=== PATIENT | female | born 1945 | race Caucasian/White ===

== ENCOUNTER → 2017-09-10 11:38 | Outpatient (CLI) | payer MEDICARE, SELFPAY ==
--- NOTE | 2017-09-10 11:43 | RAD_ITS ---
STUDY: X-RAY - RIGHT KNEE REASON FOR EXAM: Female, 72 years old. Anterior knee pain following a fall. TECHNIQUE: 5 view(s) of the knee. COMPARISON: None. FINDINGS: Normal visualized distal femur. Normal visualized proximal tibia and fibula. Normal proximal tibiofibular articulation. Nondisplaced vertical fracture along the lateral aspect of the patella. Normal medial femorotibial compartment. Normal lateral femorotibial compartment. There is mild degenerative arthrosis of the patellofemoral articulation. Moderate size joint effusion. RAD/Knee 4 or More Views IMPRESSION: Nondisplaced fracture of the lateral portion of the patella. Moderate joint effusion. Electronically Signed: Medhat Casanova MD at 12:40 EDT Tel [phone], Service support ,
--- NOTE | 2017-09-10 11:43 | RAD_ITS ---
STUDY: X-RAY - LEFT FOOT CLINICAL: Female, 72 years old. Lateral pain following a recent fall TECHNIQUE: 3 view(s) of the foot. COMPARISON: None. FINDINGS: There is a plantar calcaneal spur. Normal visualized subtalar, talonavicular, calcaneocuboid, tarsal and tarsometatarsal articulations. Prior fusion at the first tarsometatarsal joint. Nondisplaced oblique fracture of the distal portion of the fifth metatarsal. There is degenerative arthrosis of the metatarsophalangeal joint of the hallux . Normal tibial and fibular sesamoid bones. Normal interphalangeal joint of the great toe. Normal phalanges of the great toe. Normal second through fifth metatarsophalangeal joints. Normal interphalangeal joints and phalanges of the lesser toes. Soft tissue swelling. RAD/Foot min 3 Views IMPRESSION: Nondisplaced oblique fracture of distal portion of the fifth metatarsal with overlying soft tissue swelling. Electronically Signed: Medhat Casanova MD at 13:20 EDT Tel [phone], Service support ,
--- NOTE | 2017-09-10 11:43 | RAD_ITS ---
STUDY: X-RAY - LEFT KNEE REASON FOR EXAM: Female, 72 years old. Pain following a fall. TECHNIQUE: 4 view(s) of the knee. COMPARISON: None. FINDINGS: Normal visualized distal femur. Normal visualized proximal tibia and fibula. Normal proximal tibiofibular articulation. Normal medial femorotibial compartment. Normal lateral femorotibial compartment. Normal patellofemoral articulation. The soft tissue structures are unremarkable. RAD/Knee 4 or More Views IMPRESSION: Normal x-ray examination of the knee. Electronically Signed: Medhat Casanova MD at 12:40 EDT Tel [phone], Service support ,
== END ==
PROVIDERS: Family Provider Internal Medicine; PCP Internal Medicine; Visit Provider Nurse Practitioner
DX: M25.561 Pain in right knee (principal); M79.672 Pain in left foot
CPT/HCPCS: 73564; 73630

== ENCOUNTER → 2018-12-03 | Outpatient (CLI) | payer MEDICARE, SELFPAY ==
--- NOTE | 2018-12-03 12:21 | BI_ITS ---
MAMMOGRAPHY - BILATERAL SCREENING REASON FOR EXAM: Female, 73 years old. Routine annual screening examination. PERTINENT HISTORY: Non-contributory. TECHNIQUE: Digital bilateral breast aristeo (3D mammographic acquisition) in the CC and MLO projections. 2-D mediolateral oblique (MLO) and craniocaudad (CC) views of both breasts were obtained. CAD: Full Field Digital Mammography with Computer Added Detection was performed. COMPARISON: Comparison is made with prior study dated August 07, 2016 and January 24, 2014. FINDINGS: Breast Composition: There are scattered areas of fibroglandular density. There are no dominant masses or suspicious calcifications. Stable appearance of the benign-appearing bilateral axillary lymph nodes. No other significant abnormalities are identified. There has been no significant change since the prior study. BI/SCREEN MAMM (CAD) W/ARISTEO BILAT IMPRESSION: Stable bilateral screening mammogram. Yearly follow-up mammogram recommended. (A) ASSESSMENT CATEGORY: BIRADS Category 2: Benign. A letter regarding these results will be sent to the patient by the facility within 30 days. Approximately 10% of breast cancers are not detected by mammography. A normal mammogram should not delay biopsy of a clinically suspicious abnormality. [id number] Electronically Signed: Medhat Casanova, at 13:57 EDT , Service support ,
== END | disposition home or self-care (01) ==
LOC: OPBI 12:19
PROVIDERS: Family Provider Internal Medicine; PCP Internal Medicine; Referring Provider Internal Medicine; Visit Provider Internal Medicine
DX: Z12.31 Encounter for screening mammogram for malignant neoplasm of breast (principal)
CPT/HCPCS: 77063; 77067

== ENCOUNTER → 2019-02-19 10:51 | Outpatient (CLI) | payer MEDICARE, SELFPAY ==
[2016-11-04 09:48] VITALS: BMI 25.9
--- NOTE | 2019-02-19 10:56 | RAD_ITS ---
STUDY: X-RAY - LEFT TIBIA AND FIBULA REASON FOR EXAM: Female, 73 years old. ALMOST FELL YESTERDAY- CAUGHT HERSELF BEFORE ACTUALLY FALLING, HAVING ANTERIOR AND LATERAL PAIN EVER SINCE TECHNIQUE: 2 view(s) of the tibia and fibula were obtained. COMPARISON: None. FINDINGS: Normal visualized tibia. Normal visualized fibula. There is no demonstrated acute fracture. The soft tissue structures are unremarkable. RAD/Tibia & Fibula 2 Views IMPRESSION: Normal x-ray examination of the tibia and fibula. Electronically Signed: Ngoc Hatfield MD at 21:40 EST , Service support ,
== END ==
PROVIDERS: Family Provider Internal Medicine; PCP Internal Medicine; Referring Provider Internal Medicine; Visit Provider Internal Medicine
DX: M79.605 Pain in left leg (principal)
CPT/HCPCS: 73590

== ENCOUNTER → 2020-09-26 10:17 | Outpatient (CLI) | payer MEDICARE, SELFPAY ==
--- NOTE | 2020-09-26 10:20 | BI_ITS ---
MAMMOGRAPHY - BILATERAL SCREENING REASON FOR EXAM: Female, 75 years old. Routine annual screening examination. PERTINENT HISTORY: Non-contributory. TECHNIQUE: Digital bilateral breast aristeo (3D mammographic acquisition) in the CC and MLO projections. 2-D mediolateral oblique (MLO) and craniocaudad (CC) views of both breasts were obtained. CAD: Full Field Digital Mammography with Computer Added Detection was performed. COMPARISON: Comparison is made with prior study 12/03/2018 and 08/07/2016. FINDINGS: Breast Composition: The breasts are heterogeneously dense, which may obscure small masses. There now is evidence of a 4.7 mm slightly irregular nodule in the anterior upper lateral aspect of the right breast. There is a 2.2 cm x 1.9 cm right axillary lymph node. No other significant abnormalities are identified. BI/SCRN MAMM (CAD)W/ARISTEO BILAT IMPRESSION: New 4.7 mm slightly irregular nodule in the upper lateral aspect of the right breast. Prominent right axillary lymph node. Correlation with ultrasound is recommended. ASSESSMENT CATEGORY: BIRADS Category 0: Incomplete. Need additional imaging evaluation. A letter regarding these results will be sent to the patient by the facility within 30 days. Approximately 10% of breast cancers are not detected by mammography. A normal mammogram should not delay biopsy of a clinically suspicious abnormality. [id number] Electronically Signed: Medhat Casanova MD at 11:44 EDT , Service support ,
--- NOTE | 2020-09-26 10:32 | BD_ITS ---
STUDY: DUAL ENERGY X-RAY ABSORPTIOMETRY / DXA REASON FOR EXAM: Female, 75 years old. Z780. Patient is postmenopausal. TECHNIQUE: Bone Mineral Density (BMD) measurements of lumbar spine and bilateral hips were obtained. COMPARISON: Comparison is made with prior study dated 08/07/2016. FINDINGS: Lumbar Spine (L1-L4): g/cm2 (0.820) / T-score (-2.1) / Z-score (0.3) Findings are suggestive of osteopenia with a high fracture risk. Left Femur Total: g/cm2 (0.750) / T-score (-1.6) / Z-score (0.2) Left Femoral Neck: g/cm2 (0.577) / T-score (-2.5) / Z-score (-0.4) Right Femur Total: g/cm2 (0.771) / T-score (-1.4) / Z-score (0.4) Right Femoral Neck: g/cm2 (0.603) / T-score (-2.2) / Z-score (my 0.1) The T-Scores on the most recent prior examination were: Lumbar Spine (L1-L4): There has been worsening of bone density since the previous examination. Left Femur Total: which represents a worsening of 4.2%. Right Femur Total: which represents a worsening of 3.6%. BD/Dexa Bone Density Study IMPRESSION: The patient is considered osteopenic as outlined below according to World Jose Organization (WHO) criteria with a high fracture risk. There has been worsening of bone density since the previous examination. Reference Information: The T-score is the number of standard deviations above or below the standard which is normal for young adults at their peak bone mineral density. The World Health Organization (WHO) interprets the T-scores as follows: Above -1 Normal bone density Between -1 and -2.5 Osteopenia Equal to / or below -2.5 Osteoporosis As a practical clinical guideline, osteopenia may be graded as follows: Mild -1 through -1.5 Moderate -1.6 through -2.0 Severe -2.1 through -2.4 The Z-score is the number of standard deviations above or below age-matched controls. A Z-score of less than -1.5 would be considered abnormal. References: 1. NIH Osteoporosis and Related Bone Diseases www osteo.org 2. International Society for Clinical Densitometry www iscd.org 3. National Osteoporosis Foundation www nof.org Electronically Signed: Medhat Casanova MD at 11:53 EDT , Service support ,
== END ==
PROVIDERS: PCP Internal Medicine; Referring Provider Internal Medicine; Visit Provider Internal Medicine
DX: Z78.0 Asymptomatic menopausal state (principal); Z12.31 Encounter for screening mammogram for malignant neoplasm of breast
CPT/HCPCS: 77063; 77067; 77080

== ENCOUNTER → 2020-10-02 14:03 | Outpatient (CLI) | payer MEDICARE, SELFPAY ==
--- NOTE | 2020-10-02 14:11 | US_ITS ---
STUDY: ULTRASOUND BREAST - RIGHT REASON FOR EXAM: Female, 75 years old. TECHNIQUE: Axial and longitudinal images of the RIGHT breast were performed with a high resolution ultrasound transducer. # OF IMAGES: 51 COMPARISON: Previous mammogram obtained on 09/26/2020 FINDINGS: RIGHT Breast: There is a lesion in the superior lateral quadrant of the right breast. The lesion measures 6 x 4 x 3 mm in size and is lobular and corresponds to the lesion noted on the mammogram. This is of uncertain etiology, but has a reniform appearance and a central echogenic hilum and probably represents an intramammary lymph node. This lesion is seen to 11 o''clock position 6 cm from the nipple. Posterior Enhancement: None Posterior Shadowing: None Margins: Lobular Echogenicity: Hypoechoic Compression effect on Shape: Does not change US/Breast Limited Unilateral IMPRESSION: Hypoechoic lesion is seen in the superior lateral aspect of the left breast at the 11 o''clock position of uncertain etiology. Because of ultrasound appearance of this nodule could represent a lymph node, however, a solid hypoechoic tumor cannot be completely excluded and close interval follow-up in 6 months with a follow-up mammogram versus an ultrasound directed right breast biopsy is recommended for further evaluation ASSESSMENT CATEGORY: BIRADS Category 4B: Moderate suspicion for malignancy. A letter regarding these results will be sent to the patient by the facility within 30 days. Electronically Signed: Jovon Nicole DO at 15:18 EDT Tel , Service support ,
== END ==
PROVIDERS: PCP Internal Medicine; Referring Provider Internal Medicine; Visit Provider Internal Medicine
DX: R92.8 Other abnormal and inconclusive findings on diagnostic imaging of breast (principal)
CPT/HCPCS: 76642

== ENCOUNTER → 2020-10-19 08:01 | Outpatient (CLI) | payer MEDICARE, SELFPAY ==
--- NOTE | 2020-10-18 | IMM_PTH ---
PATIENT: SHARIFA DALEY LOC: [facility] U#:[id number] AGE/SX: 79/F ROOM: RE10/19/[address]: Dr. Hal Hu MD : 1945 BED: DIS: SPEC #: [id number] RECD: 10/20/20 13:07 STATUS: MARGOTH RECarmelita #: [id number] EN: 10/18/20 00:[address]: Hal Hu DEPT: IMMUNOHISTOCHEMISTRY RECD BY: Ashley Gonzalez ENTERED: 10/20/20 13:12 SP TYPE: IMMUNO OTHR DR: Dr. Suzi Ledesma, Tissues: A - Right breast, NOS B - Axilla, NOS Procedures: CALPONIN-1 (add) CK5-6 (add) CK8 (add) OZUNA-2 (add) E-CAD (add) HER2 AARON (add) KI-67 (add) MAMM (add) P53 (add) VA (add) GATA3 (add) P40 (add) ER (initial) PHYSICIAN & [address] [address] SPECIMEN INFORMATION: Tissue Source: A ? Right breast tissue, B ? Right axilla tissue Clinical Info: Abnormal breast ultrasound Specimen Number: [id number] A & B CPT code: 04168 x2, 11918 x9, 43431 x5 METHODOLOGY: Deparaffinized sections of prefer/formalin-fixed tissue or PAP/DQ stained slides are incubated with monoclonal/polyclonal antibodies/oligonucleotide probes. Localization is made via biotin free immunoperoxidase method. Appropriate controls are performed and reacted as expected. Results on target cell population are indicated in the following table: RESULTS: ANTIBODY / CLONE RESULT Block A P53 (DO-7) negative Ki-67 (30-9) positive, low CK8 (42btlzA94) positive CK5-6 (D5 & 1684) negative Calponin-1 (BB699W) negative P40 (BC28) negative E-Cad (ECH-6) positive OZUNA-2 (SP21) positive MORPHOMETRIC ANALYSIS ER (clone 6F11) >95%, strong intensity VA (clone 16/1E2) >95%, strong intensity Her-2Neu (clone CB11) 0 Block B GATA3 (L50-823) positive Mammaglobin (31A5) positive, rare cells E-Cad (ECH-6) positive ER (6F11) positive VA (1E2) positive The prognostic test for HER2 is performed on formalin-fixed paraffin embedded tissue. A 3+ (positive) staining pattern is defined as intense, homogeneous, complete, circumferential membranous staining in >10% of contiguous tumor cells. A similar weak (2+) staining pattern is interpreted as equivocal. TRINA follow-up testing is recommended for all equivocal cases. Positivity/negativity for ER/VA is reported if > or < 1% of the tumor cells are immuno- reactive, respectively. The ASCO/CAP criteria is used for scoring. Reference: Journal of Clinical Oncology, 2013; 31:1222-3448 & 2010; 16:4441-2684. Duration of fixation: 27.5 Hrs; Sample Adequate: Yes. These assays have not been validated on decalcified tissues. Results should be interpreted with caution given the likelihood of false negativity on decalcified specimens. These tests were developed and their performance characteristics determined by [facility]. They may not have been cleared or approved by the U.S. Food and Drug Administration. The FDA has determined that such clearance or approval is not necessary. The above immunohistochemical/dualISH markers are ordered and reviewed by the Pathologist. INTERPRETATION: A. Right breast tissue, core biopsy: Invasive ductal carcinoma, nuclear grade 1. Positive for estrogen receptors (favorable prognostic indicator). Positive for progesterone receptors (favorable prognostic indicator). Negative for overexpression of CIX6iwh. B. Right axilla tissue, core biopsy: Invasive ductal carcinoma. SJ:roxanne 10/23/2020
--- NOTE | 2020-10-18 | BRBX_PTH ---
PATIENT: SHARIFA DALEY LOC: [facility] U#:[id number] AGE/SX: 79/F ROOM: RE10/19/[address]: Dr. Hal Hu MD : 1945 BED: DIS: SPEC #: [id number] RECD: 10/19/20 07:52 STATUS: MARGOTH HARPREET #: [id number] EN: 10/18/20 00:[address]: Hal Hu DEPT: SURGICAL PATHOLOGY RECD BY: Chidi Berman ENTERED: 10/19/20 08:25 SP TYPE: BREAST BX OTHR DR: Dr. Suzi Ledesma DO Tissues: A - Right breast, NOS B - Axilla, NOS Procedures: Surgery Specimen Level IV HEADER OPERATION: Right breast biopsy and right axilla biopsy PRE-OP DIAGNOSIS: Abnormal breast ultrasound TISSUE SUBMITTED: A ? Right breast tissue, B ? Right axilla tissue FIXATION TIME: 27.5 hours MICROSCOPIC DIAGNOSIS A. Right breast, core biopsy: Invasive ductal carcinoma with the following characteristics: Maximal length ? 5 millimeters Nuclear grade ? 03/05 See comment. B. Right axilla, core biopsy: Invasive ductal carcinoma with the following characteristics: Maximal length ? 5 millimeters Nuclear grade ? 03/05 See comment. AM:roxanne 10/20/2020 COMMENT A. ER/MO/Nom4pjz studies are being performed on sections of tumor and the results from this study will be reported separately ([id number]). B. Immunohistochemistry ([id number]) supports the above diagnosis. Metastasis to lymph node cannot be ruled out. Clinical correlation is suggested. Case has been reviewed in consultation with Dr. Platt who concurs with the above diagnosis. IDC:SJ MICROSCOPIC DESCRIPTION Slides are reviewed. GROSS DESCRIPTION A - Received in fixative is one container labeled with the patient name and designated right breast. The specimen consists of multiple elongated fragments of rowell-yellow fibroadipose tissue that in aggregate measure 2.5 x 0.3 x 0.1 cm. The entire specimen is submitted in one cassette. B - Received in fixative is one container labeled with the patient's name and designated right axilla. The specimen consists of multiple irregular fragments of rowell soft tissue that in aggregate measure 0.5 x 0.2 x 0.1 cm. The specimen is totally submitted in one cassette. / SJ:rg 10/19/20 TC:0 CPT: 72897 x2 ADDENDUM ADDENDUM ADDENDUM ADDENDUM ADDENDUM ADDENDUM ADDENDUM ADDENDUM 06/19/2021 15:37 ADDENDUM 06/19/2021 15:37 ADDENDUM 06/19/2021 15:37 ADDENDUM 06/19/2021 15:37 ADDENDUM 06/19/2021 15:37 An order for Oncotype testing was received from Dr. Antony. This necessitated case review, block and slide selection by pathologist at [facility]. Breast Cancer Recurrence Score = 7 Results of the complete Oncotype testing ([facility]iz[facility] report) are viewable in EMR under: Reports - Pathology - Lab Pathology Report, Scanned.
== END ==
PROVIDERS: PCP Internal Medicine; Visit Provider Surgery
DX: R92.8 Other abnormal and inconclusive findings on diagnostic imaging of breast (principal)
CPT/HCPCS: 88305

== ENCOUNTER → 2020-10-19 09:38 | Outpatient (CLI) | payer MEDICARE, SELFPAY ==
--- NOTE | 2020-10-19 09:40 | BI_ITS ---
MAMMOGRAPHY - UNILATERAL DIAGNOSTIC: RIGHT BREAST REASON FOR EXAM: Female, 75 years old. Clip placement following biopsy. PERTINENT HISTORY: Right breast biopsy. TECHNIQUE: Digital unilateral breast denisse (3D mammographic acquisition) in the CC and MLO projections. 2-D mediolateral oblique (MLO) and craniocaudad (CC) views of both breasts were obtained. CAD: Full Field Digital Mammography with Computer Added Detection was performed. COMPARISON: Comparison is made with prior study dated 09/26/2020. FINDINGS: Indication clip marker is seen in the upper lateral aspect of the right breast at the site of the suspicious nodular density. A tissue clip marker is also seen within the enlarged right axillary lymph node. BI/DIAG MAMM W/CAD, UNILAT IMPRESSION: Tissue clip marker is seen within the nodular density in the upper lateral aspect of the right breast. Tissue clip marker is also seen in the enlarged right axillary lymph node. ASSESSMENT CATEGORY: BIRADS Category 2: Benign. A letter regarding these results will be sent to the patient by the facility within 30 days. Approximately 10% of breast cancers are not detected by mammography. A normal mammogram should not delay biopsy of a clinically suspicious abnormality. Electronically Signed: Medhat Casanova MD at 10:08 EDT , Service support ,
== END ==
PROVIDERS: PCP Internal Medicine; Visit Provider Surgery
DX: R92.8 Other abnormal and inconclusive findings on diagnostic imaging of breast (principal)
CPT/HCPCS: 77065; 88305; 88341; 88342

== ENCOUNTER → 2020-11-02 08:01 | Outpatient (CLI) | payer MEDICARE, SELFPAY ==
--- NOTE | 2020-11-02 08:02 | MRI_ITS ---
STUDY: BILATERAL BREAST MR WITHOUT AND WITH CONTRAST REASON FOR EXAM: Female, 75 years old. History of 2 biopsies of the right breast. History of breast cancer. TECHNIQUE: Multi-sequence multi-echo imaging of both breasts was performed with a dedicated breast coil. T1-weighted and T2-weighted images were performed before the administration of contrast. T1-weighted images were also performed after the administration of IV Yes without complications. COMPARISON: Right diagnostic mammogram dated 10/19/2020 and right breast ultrasound dated 10/02/2020. FINDINGS: RIGHT BREAST: The breast tissue is heterogeneously dense with minimal background enhancement. 7 mm in diameter irregular enhancing lesion corresponding to the ultrasound findings with a tissue clip marker within it. The lesion is moderately suspicious for breast cancer. At the time of this dictation, I did not have access to the histologic results. LEFT BREAST: The breast tissue is heterogeneously dense with minimal background enhancement. There are no abnormal enhancing masses or areas of non-mass enhancement in the left breast. Fatty replaced lymph nodes in both axillae. There is no abnormality in the visualized regions of the chest or liver. . MRI/Breast Bilateral W/O and W IMPRESSION: Enhancing lesion at approximately the 11 o''clock position of the right breast corresponding to the ultrasonographic findings, moderately suspicious for breast cancer. See discussion above. CATEGORY: BIRADS Category 4B: Moderate suspicion for malignancy. A letter regarding these results will be sent to the patient by the facility within 30 days. Electronically Signed: Luis Corado MD at 9:32 EDT , Service support ,
[2020-11-02 08:51] LABS: CREATININE FINGERSTICK 0.7 mg/dL (0.55-1.02); EGFR FINGERSTICK > 60.0000 mL/min (>60)
== END ==
PROVIDERS: PCP Internal Medicine; Referring Provider Surgery; Visit Provider Surgery
DX: C77.3 Secondary and unspecified malignant neoplasm of axilla and upper limb lymph nodes (principal); C50.911 Malignant neoplasm of unspecified site of right female breast
CPT/HCPCS: 77049; A9575; C8908

== ENCOUNTER 2020-11-30 09:24 | Day surgery (SDC) | payer MEDICARE, SELFPAY ==
--- NOTE | 2020-11-28 09:29 | EKG12_ITS ---
Test Reason : PREOP Blood Pressure : / mmHG Vent. Rate : 082 BPM Atrial Rate : 082 BPM P-R Int : 200 ms QRS Dur : 106 ms QT Int : 352 ms P-R-T Axes : 025 -45 020 degrees QTc Int : 411 ms Normal sinus rhythm Left axis deviation Poor R wave progression Septal CO, age undetermined, cannot be excluded Abnormal ECG Confirmed by DEBORAH NEUMANN, ERIK ([id number]), editor map DEDE LEE ([id number]) on 11/29/2020 1:04:31 PM Referred By: Hal Hu Confirmed By:ERIK CABRERA MD
--- NOTE | 2020-11-28 10:00 | RAD_ITS ---
STUDY: X-RAY CHEST REASON FOR EXAM: Female, 75 years old. PRE-OP -- BREAST CA TECHNIQUE: PA and lateral views of the chest. COMPARISON: None. FINDINGS: Hyperinflation. Scattered calcified granulomas. There is no demonstrated pleural abnormality. Normal size heart. Normal mediastinum and darshan. Normal visualized pulmonary arteries. There is atherosclerotic calcification of the aortic arch with tortuosity. There is demineralization of the osseous structures. Increased kyphosis Normal visualized ribs, clavicles, and shoulders. There is no demonstrated abnormality of the visualized soft tissue structures of the upper abdomen. RAD/Chest PA and Lateral IMPRESSION: Hyperinflation. The lungs are clear. Electronically Signed: Medhat Casanova MD at 14:01 EDT , Service support ,
[2020-11-28 10:59] LABS: Hematocrit 43.1 % (37-47); Hemoglobin 14.5 g/dL (12.0-15.0); Mean Corp Hgb Conc 33.6 g/dL (32-36); Mean Corpuscular Hgb 33.2 pg (27.0-32.0); Mean Corpuscular Volume 98.6 fL (81-99); Mean Platelet Vol. 9.3 fl (6.2-12.0); Platelet Count 193 K/mm3 (150-450); RBC Distribution Width CV 13.1 % (11.6-14.6); RBC Distribution Width SD 47.8 fl (35.1-43.9); Red Blood Count 4.37 M/mm3 (4.2-5.4); White Blood Count 7.1 K/mm3 (4.4-11.0)
[2020-11-28 11:37] LABS: AST(SGOT) 24 U/L (15-37); Alanine Aminotransfer ALT/SGPT 37 U/L (13-56); Albumin, Serum 3.9 g/dL (3.2-5.0); Alkaline Phosphatase 93 U/L (45-117); Anion Gap 8 (5-15); BUN 12 mg/dL (7-18); BUN/Creat Ratio 18.2 RATIO (10-20); Calcium,Total 9.3 mg/dL (8.5-10.1); Chloride 103 mmol/L (98-107); Creatinine, Serum 0.66 mg/dL (0.55-1.02); EST Glomerular Filtration Rate 93 mL/min (>60); Est Glom Filt Rate - Afr Amer 112 mL/min (>60); Globulin 3.9 g/dL (2.2-4.2); Glucose 101 mg/dL (74-106); Protein, Total 7.8 g/dL (6.4-8.2); Sodium Level 139 mmol/L (136-145)
--- NOTE | 2020-11-30 | BRBX_PTH ---
PATIENT: SHARIFA DALEY [place] [facility] [place][id number] AGE/SX: 75/F ROOM: RE11/30/[address]: Dr. Hal uH MD : 1945 BED: DIS: 11/30/2020 SPEC #: [id number] RECD: 11/30/20 11:46 STATUS: MARGOTH RECarmelita #: [id number] EN: 11/30/20 00:[address]: Hal Hu DEPT: SURGICAL PATHOLOGY RECD BY: Ashley Gonzalez ENTERED: 11/30/20 12:22 SP TYPE: BREAST BX OTHR DR: Dr. Suzi Ledesma, DO Tissues: A - Right breast, NOS B - Axillary tail of breast Procedures: Surgery Specimen Level V HEADER OPERATION: Stereotactic wire localization breast and axilla, ultrasound PRE-OP DIAGNOSIS: Abnormal mammogram of right breast, axillary adenopathy TISSUE SUBMITTED: A - Right breast lumpectomy, wire out - anterior, long suture - lateral, short suture - superior, B - Right axillary dissection MICROSCOPIC DIAGNOSIS A. Right breast, lumpectomy: Invasive ductal carcinoma. See synoptic report below. B. Right axillary lymph nodes, regional lymphadenectomy: Two out of ten lymph nodes with metastatic breast carcinoma. See comment. AM:roxanne 12/04/2020 COMMENT INVASIVE BREAST CANCER SUMMARY: Procedure: Excision with wire guidance Specimen: Type: Partial breast Size: 6 x 3 x 2.3 cm Laterality: Right breast Invasive Tumor: Site: Right breast Size: 8 x 5 x 5 mm Focality: Single focus of invasive carcinoma Histologic type: Invasive ductal carcinoma. Histologic grade (Evon grade): Glandular/tubular differentiation score: 3 Nuclear pleomorphism score: 2 Mitotic count score: 1 Overall grade: 2 (score of 6) Ductal Carcinoma In Situ: Present Estimated quantification: 20% Number of blocks: 2 of 12 blocks Architectural pattern: Cribriform and focal solid Nuclear grade: 2 Necrosis: Not present Lobular Carcinoma In Situ: Not present Tumor extension: Skin: No skin present Nipple: No nipple present Skeletal muscle: No muscle present. Margins: Distance of invasive carcinoma is 3 mm from anterior margin. Distance of in situ carcinoma from closest margin is 2.5 mm from anterior margin. Lymph Nodes: Number of sentinel lymph nodes examined: 0 Total number of lymph nodes examined: 10 Total number of lymph nodes involved by carcinoma: 2 of 10. Size of largest metastatic deposit: 2.5 cm. Extranodal extension: 7 mm See specimen ?A? Treatment Effect: Unknown Lymphvascular invasion: Not identified Additional Pathologic Findings: Fibrocystic change, usual intraductal hyperplasia with focal atypical intraductal hyperplasia and adenosis. Ancillary Studies: Previously performed ([id number]) ER: positive (>95%, strong intensity) LA: positive (>95%, strong intensity) Adt7nrc: negative (0) PATHOLOGIC STAGE: pT1b pN1a Mx The above summary is in compliance with [employer] [place] [employer] (CAP) Cancer Protocols Checklist and [place] Joint Committee on Cancer (AJCC), Staging Manual, 8th Ed. A. Immunohistochemistry ([id number]) supports the above diagnosis. B. The metastatic foci of carcinoma range in size from 0.3 to 2.5 cm. There is focal area of extranodal extension measuring approximately 7 mm in greatest dimension adjacent to largest metastatic focus. Reference is made to the patient's previous right core breast biopsy and right axillary mass core biopsy from 10/20/20 ([id number]) in which invasive ductal carcinoma with metastasis was identified. Case has been reviewed in consultation with Dr. Platt who concurs with the above diagnosis. IDC:[email or web address] MICROSCOPIC DESCRIPTION Slides are reviewed. GROSS DESCRIPTION A - Received fresh for OR consultation labeled with the patient's name is a specimen designated right breast lumpectomy. The specimen consists of a wire-guided lumpectomy specimen measuring 6 x 3 x 2.3 cm and weighing 17.8 gm. No skin fragment is attached. The specimen has been oriented and is differentially inked as follows: anterior - yellow, posterior - black, superior - blue, inferior - green, medial - red and lateral - orange. Serial sections reveal a 5 mm nodule located 0.5 cm from its closest (anterior) margin of excision. This information is conveyed to the surgeon intraoperatively. Topographic Computator sections are submitted in ten cassettes as follows: 1 & 2 - perpendicular inked margins, 3 - lesion with adjacent perpendicular anterior margin, 4-10 - event sales representative sections of uninvolved breast parenchyma adjacent to and away from the lesion with #10 closest to tumor. B - Received in fixative is one container labeled with the patient's name and designated right axillary dissection. The specimen consists of an irregular fragment of rowell-yellow fibrofatty tissue measuring 14 x 7 x 1 cm. Two sections reveal multiple nodules ranging in size from 0.5 to 2.5 cm. The nodules are submitted in their entirety in seven cassettes as follows: 1 & 2 - multiple nodules, 3-5 - one nodule, serially sectioned, 6 & 7 - one nodule, serially sectioned. / AM:roxanne 12/01/20 TC:0 CPT: 32696 x2, 47155
--- NOTE | 2020-11-30 | IMM_PTH ---
PATIENT: SHARIFA DALEY [place] [facility] [place][id number] AGE/SX: 75/F ROOM: RE11/30/[address]: Dr. Hal Hu MD : 1945 BED: DIS: 11/30/2020 SPEC #: [id number] RECD: 12/05/20 12:27 STATUS: MARGOTH REQ #: [id number] EN: 11/30/20 00:[address]: Hal Hu DEPT: IMMUNOHISTOCHEMISTRY RECD BY: Ashley Gonzalez ENTERED: 12/05/20 12:28 SP TYPE: IMMUNO OTHR DR: Dr. Suzi Ledesma, DO Tissues: B - Axillary lymph node, NOS Procedures: MAMM (add) Pankeratin (initial) GATA3 (add) PHYSICIAN & INSTITUTION [place] [id number] SPECIMEN INFORMATION: Tissue Source: B ? Right axillary dissection Clinical Info: Abnormal mammogram, axillary adenopathy Specimen Number: [id number] B CPT code: 70866, 79495 x2 METHODOLOGY: Deparaffinized sections of prefer/formalin-fixed tissue or PAP/DQ stained slides are incubated with monoclonal/polyclonal antibodies/oligonucleotide probes. Localization is made via biotin free immunoperoxidase method. Appropriate controls are performed and reacted as expected. Results on target cell population are indicated in the following table: RESULTS: ANTIBODY / CLONE RESULT Block B GATA3 ([id number]) positive AE1-3 (AE1/AE3/PCK26) positive Mammaglobin (31A5) positive, focal These tests were developed and their performance characteristics determined by [facility]. They may not have been cleared or approved by the [place]. Food and Drug Administration. The FDA has determined that such clearance or approval is not necessary. The above immunohistochemical/dualISH markers are ordered and reviewed by the Pathologist. INTERPRETATION: B. Right axillary lymph node, regional lymphadenectomy: Consistent with metastatic breast carcinoma. AM:roxanne 12/06/2020
--- NOTE | 2020-11-30 09:42 | BI_ITS ---
SURGICAL BREAST SPECIMEN RADIOGRAPH CLINICAL: Document presence of tissue clip marker in biopsy specimen. FINDINGS: Specimen shows presence of tissue clip marker. Electronically Signed: Medhat Casanova MD at 12:27 EDT , Service support , BI/Breast Biopsy Specimen
[2020-11-30 09:47] VITALS: BP 148/90; PULSE 87; RESP 18; TEMP 36.1; O2SAT 99; BMI 24.4
[2020-11-30] MEDS: Lactated Ringers 1,000 ML 100 ML IV ×2 (10:07→13:01)
--- NOTE | 2020-11-30 10:45 | PCM.HP.BLA ---
History and Physical Date of Admission: 11/30/20 Visit Reasons: Discuss surgery Chief Complaint: discuss surgery Poll Watcher Required: No Is patient in pain?: No Allergies No Known Allergies Allergy (Verified 11/16/20 07:38) Medications conjugated estrogens 0.625 mg/gram vaginal cream 0.625 mg VAGINAL DAILY 10/18/20 [History Confirmed 11/16/20] metronidazole 0.75 % topical cream 1 applic TOPICAL BID 10/18/20 [History Confirmed 11/16/20] multivitamin 1 tab PO DAILY 10/18/20 [History Confirmed 11/16/20] salmon oil-omega-3 fatty acids 1,000 mg-200 mg capsule cap PO 10/18/20 [History Confirmed 11/16/20] ascorbic acid (vitamin C) 1,000 mg tablet 1 g PO DAILY tab 11/08/20 [History Confirmed 11/16/20] cholecalciferol (vitamin D3) 50 mcg (2,000 unit) tablet 50 mcg PO BID tab 11/08/20 [History Confirmed 11/16/20] tamsulosin 0.4 mg capsule 0.4 mg PO QHS #30 cap 11/16/20 [Rx Confirmed 11/16/20] Is last menstrual period known: No Post menopausal: Yes Patient : No PFSH Medical History Allergies Breast cancer of upper-outer quadrant of right female breast Hyperthyroidism Left anterior fascicular block Osteopenia Regional lymph node metastasis present Tinea cruris Surgical History History of breast biopsy (~10/2020) S/P appendectomy S/P cataract extraction S/P foot surgery S/P tonsillectomy and adenoidectomy Family History Mother Heart disease Father Heart disease Social History Smoking Status: Never smoker second hand exposure: No alcohol intake: current Alcohol type: wine substance use type: does not use what type of physical activity do you participate in: yoga frequency: 1-2 times per week eliud/oriental orthodox: Cheondoism seatbelt use: always do you feel safe at home: Yes HPI HPI HPI: SHARIFA HIRST, is a 75 F who presents to the office today for ongoing surgical consultation regarding upper outer quadrant right breast cancer with metastasis to one known lymph node. Since her most recent surgery visit she has had a breast MRI and a consultation with Dr. Riley Antony. The breast MRI simply demonstrates the known cancer in the upper quadrant of the right breast. Actually there is no comment about the right axillary lymph node. 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 November 02, [address] Luis Corado MD on 11/10/20 at 1020 ADDENDUM IMPRESSION: Enhancing lesion at approximately the 11 o''clock position of the right breast corresponding to the ultrasonographic findings, compatible with the patient''s diagnosis of malignancy. CATEGORY: BIRADS Category 6: Known Biopsy-Proven Malignancy - Appropriate Action Should Be Taken. A letter regarding these results will be sent to the patient by the facility within 30 days. Electronically Signed: Luis Corado MD at 10:20 EDT , Service support , 11/10/20 1020Date cc: Dr. Suzi Ledesma DO; Dr. Hal Hu MD ~*Signed ADDENDUM by Dr. Luis Corado MD on 11/10/20 at 1020 MRI/Breast Bilateral W/O and W 11/10/20 1027Date cc: Dr. Suzi Ledesma DO; Dr. Hal Hu MD ~*Signed STUDY: BILATERAL BREAST MR WITHOUT AND WITH CONTRAST REASON FOR EXAM: Female, 75 years old. History of 2 biopsies of the right breast. History of breast cancer. TECHNIQUE: Multi-sequence multi-echo imaging of both breasts was performed with a dedicated breast coil. T1-weighted and T2-weighted images were performed before the administration of contrast. T1-weighted images were also performed after the administration of IV Yes without complications. COMPARISON: Right diagnostic mammogram dated 10/19/2020 and right breast ultrasound dated 10/02/2020. FINDINGS: RIGHT BREAST: The breast tissue is heterogeneously dense with minimal background enhancement. 7 mm in diameter irregular enhancing lesion corresponding to the ultrasound findings with a tissue clip marker within it. The lesion is moderately suspicious for breast cancer. At the time of this dictation, I did not have access to the histologic results. LEFT BREAST: The breast tissue is heterogeneously dense with minimal background enhancement. There are no abnormal enhancing masses or areas of non-mass enhancement in the left breast. Fatty replaced lymph nodes in both axillae. There is no abnormality in the visualized regions of the chest or liver. . MRI/Breast Bilateral W/O and W IMPRESSION: Enhancing lesion at approximately the 11 o''clock position of the right breast corresponding to the ultrasonographic findings, moderately suspicious for breast cancer. See discussion above. CATEGORY: BIRADS Category 4B: Moderate suspicion for malignancy. A letter regarding these results will be sent to the patient by the facility within 30 days. Electronically Signed: Luis Corado MD at 9:32 EDT , Service support , My previous notes reflect the following Intake Visit Reasons: discuss surgery Chief Complaint: right breast mass Allergies No Known Allergies Allergy (Verified 10/18/20 15:34) Medications conjugated estrogens 0.625 mg/gram vaginal cream 0.625 mg VAGINAL DAILY 10/18/20 [History Confirmed 10/24/20] metronidazole 0.75 % topical cream 1 applic TOPICAL BID 10/18/20 [History Confirmed 10/24/20] multivitamin 1 tab PO DAILY 10/18/20 [History Confirmed 10/24/20] salmon oil-omega-3 fatty acids 1,000 mg-200 mg capsule cap PO 10/18/20 [History Confirmed 10/24/20] [facility] Medical History Allergies Hyperthyroidism Left anterior fascicular block Tinea cruris Surgical History (Updated 10/24/20 @ 12:34 by Helen Law) History of breast biopsy (~10/2020) S/P appendectomy S/P cataract extraction S/P foot surgery S/P tonsillectomy and adenoidectomy Family History Mother Heart disease Father Heart disease Social History Smoking Status: Never smoker alcohol intake: current alcohol intake frequency: holidays/special occasions only HPI HPI HPI: SHARIFA DALEY, is a 75 F who presents to the office today for surgical follow-up of an ultrasound-guided core biopsy upper outer quadrant right breast mass and separate enlarged right axillary lymph node that I assisted her with on October 18, 2020. MICROSCOPIC DIAGNOSIS A. Right breast, core biopsy:Invasive ductal carcinoma with the following characteristics:Maximal length ?5 millimeters Nuclear grade ?1/3 B. Right axilla, core biopsy:Invasive ductal carcinoma with the following characteristics:Maximal length ?5 millimeters Nuclear grade ?1/3 Estrogen receptor greater than 95% strong intensity; progesterone receptor greater than 95% strong intensity; HER-2/joyce 0 My notes from October 18, 2020 follow: Intake Visit Reasons: R BRST BIRAD IV, U/S & MAMMO [facility] Chief Complaint: right breast mass Poll Watcher Required: No Is patient in pain?: No Allergies No Known Allergies Allergy (Verified 10/18/20 15:34) Medications conjugated estrogens 0.625 mg/gram vaginal cream 0.625 mg VAGINAL DAILY 10/18/20 [History Confirmed 10/18/20] metronidazole 0.75 % topical cream 1 applic TOPICAL BID 10/18/20 [History Confirmed 10/18/20] multivitamin 1 tab PO DAILY 10/18/20 [History Confirmed 10/18/20] salmon oil-omega-3 fatty acids 1,000 mg-200 mg capsule cap PO 10/18/20 [History Confirmed 10/18/20] [facility] Medical History (Updated 10/18/20 @ 16:[address] Hal Hu MD) Allergies Hyperthyroidism Left anterior fascicular block Tinea cruris Surgical History (Updated 10/18/20 @ 15:32 by Yadi Rodrigues) S/P appendectomy S/P cataract extraction S/P foot surgery S/P tonsillectomy and adenoidectomy Family History (Updated 10/18/20 @ 15:33 by Yadi Rodrigues) Mother Heart disease Father Heart disease Social History (Updated 10/18/20 @ 15:33 by Yadi Rodrigues) Smoking Status: Never smoker alcohol intake: current alcohol intake frequency: holidays/special occasions only HPI HPI HPI: SHARIFA DALEY, is a 75 F who presents to the office today for surgical consultation regarding an abnormal upper outer right breast mammogram and a prominent right axillary lymph node. The patient had bilateral mammograms and right breast ultrasound. In the right breast ultrasound report of October 02, 2020 there appears to be a typographical error in the impression stating that there is a defect in the left breast. A correct interpretation should be that it is the right breast that is of concern. 75-year-old female. G3, . Menarche age 13. First child was born when she was 20. She did not breast-feed. No history of previous breast biopsy. For the past 2 to 3 months she has been on vaginal Premarin. I have asked her to hold this. Family history is negative for breast cancer. She has not been able to detect any focal breast abnormality. There is been no nipple discharge or bleeding. September 26, 2020 MAMMOGRAPHY - BILATERAL SCREENING REASON FOR EXAM: Female, 75 years old. Routine annual screening examination. PERTINENT HISTORY: Non-contributory. TECHNIQUE: Digital bilateral breast aristeo (3D mammographic acquisition) in the CC and MLO projections. 2-D mediolateral oblique (MLO) and craniocaudad (CC) views of both breasts were obtained. CAD: Full Field Digital Mammography with Computer Added Detection was performed. COMPARISON: Comparison is made with prior study 12/03/2018 and 08/07/2016. FINDINGS: Breast Composition: The breasts are heterogeneously dense, which may obscure small masses. There now is evidence of a 4.7 mm slightly irregular nodule in the anterior upper lateral aspect of the right breast. There is a 2.2 cm x 1.9 cm right axillary lymph node. No other significant abnormalities are identified. BI/SCRN MAMM (CAD)W/ARISTEO BILAT IMPRESSION: New 4.7 mm slightly irregular nodule in the upper lateral aspect of the right breast. Prominent right axillary lymph node. Correlation with ultrasound is recommended. ASSESSMENT CATEGORY: BIRADS Category 0: Incomplete. Need additional imaging evaluation. A letter regarding these results will be sent to the patient by the facility within 30 days. Approximately 10% of breast cancers are not detected by mammography. A normal mammogram should not delay biopsy of a clinically suspicious abnormality. [id number] Electronically Signed: Medhat Casanova MD at 11:44 EDT , Service support , October 02, 2020 STUDY: ULTRASOUND BREAST - RIGHT REASON FOR EXAM: Female, 75 years old. TECHNIQUE: Axial and longitudinal images of the RIGHT breast were performed with a high resolution ultrasound transducer. # OF IMAGES: 51 COMPARISON: Previous mammogram obtained on 09/26/2020 FINDINGS: RIGHT Breast: There is a lesion in the superior lateral quadrant of the right breast. The lesion measures 6 x 4 x 3 mm in size and is lobular and corresponds to the lesion noted on the mammogram. This is of uncertain etiology, but has a reniform appearance and a central echogenic hilum and probably represents an intramammary lymph node. This lesion is seen to 11 o''clock position 6 cm from the nipple. Posterior Enhancement: None Posterior Shadowing: None Margins: Lobular Echogenicity: Hypoechoic Compression effect on Shape: Does not change US/Breast Limited Unilateral IMPRESSION: Hypoechoic lesion is seen in the superior lateral aspect of the left breast at the 11 o''clock position of uncertain etiology. Because of ultrasound appearance of this nodule could represent a lymph node, however, a solid hypoechoic tumor cannot be completely excluded and close interval follow-up in 6 months with a follow-up mammogram versus an ultrasound directed right breast biopsy is recommended for further evaluation ASSESSMENT CATEGORY: BIRADS Category 4B: Moderate suspicion for malignancy. A letter regarding these results will be sent to the patient by the facility within 30 days. Electronically Signed: Jovon Nicole DO at 15:18 EDT Tel , Service support , ROS General General: No weight change, appetite, fatigue, colon cancer, breast cancer or weakness HEENT HEENT: No difficulty swallowing, eye injury, eye surgery, swollen glands or hoarseness Endo Endocrine: No thyroid disease, diabetes mellitus, thyroid cancer, Hair loss, heat intolerance or cold intolerance Skin Skin: No rash or changing moles Breast Breast: No left breast lump, right breast lump, nipple discharge, breast pain, abnormal mammogram, abnormal US or breast enlargement Musc Musculoskeletal: No back problems, arthritis, rheumatoid arthritis, gout or joint pain Cardio Cardiovascular: No murmur, pacemaker, heart disease, atrial fibrillation, high blood pressure, heart attack, heart stent, palpitations, shortness of breat with exertion or chest pain Psych Psychiatric: No depression, anxiety or hearing voices Resp Respiratory: No shortness of breath, No sleep apnea, No cough, No COPD, No asthma, No emphysema and No wheezing Gastro Gastrointestinal: No abdominal pain, No nausea or vomiting, No diarrhea, No constipation, No blood in stool, No acid reflux, No hemorrhoids, No ulcers, No gallbladder problem and No black,tarry stools Ward Hematologic: No blood thinners, No blood disorders, No bleeding, No anemia and No blood clots Neuro Neurologic: No system reviewed and no additional complaints, except as documented, No as per HPI, No abnormal gait, No abnormal hearing, No abnormal movements, No abnormal speech, No behavioral changes, No burning sensations, No confusion, No convulsions, No disequilibrium, No dizziness, No localized weakness, No frequent falls, No headache(s), No lack of coordination, No loss of vision, No memory loss, No numbness, No other visual disturbances, No radicular pain, No restless legs, No sensory deficit, No syncope, No tingling, No tremor(s), No weakness and No other Exam Const General: cooperative, healthy appearing, comfortable and no acute distress [facility] Head: normal to inspection Eyes General: appearance normal, both eyes and all related structures Neck Neck: normal visual inspection Chest Other: Right breast: No focal mass. No nipple discharge. Distinct solitary enlarged right axillary lymph node, slightly mobile, no matting, no conglomerate Left breast no focal mass. No nipple discharge. No axillary clavicular adenopathy Resp Effort & Inspection: normal respiratory effort Auscultation: clear to auscultation bilaterally Cardio Rate: regular rate Rhythm: regular rhythm GI Palpation: soft Auscultation: normal bowel sounds Neuro General: patient alert, patient awake, patient oriented x3 and oriented Extrem General: no calf tenderness Psych Affect: normal affect Office Procedures Biopsy Provider Documentation Ultrasound-guided needle core biopsy upper outer quadrant right breast lesion 11 o'clock position +6 cm Ultrasound-guided needle core biopsy right axillary enlarged lymph node Timeout and informed consent was obtained. 75-year-old female was taken the procedure room right shoulder roll was placed. The upper quadrant right breast and right axilla was prepped with Betadine. Ultrasound was performed demonstrating the upper outer quadrant right breast 11:00 for 6 cm lesion. Under ultrasound guidance 1% lidocaine mixed 50-50 with 0.5% Marcaine was instilled as a local anesthetic. Throughout both procedures a total of 15 cc was used. A small stab incision was created. A 14-gauge Monopty needle was was advanced to prefire depth. Pre and post fire films were obtained. 5 cores were obtained. A coil clip was left in position. Pressure was held for hemostasis. No bleeding. Steri-Strip Telfa OpSite dressing applied. Attention was now drawn to the enlarged right axillary lymph node. Similar local anesthetic applied. Small stab incision created. A 14-gauge Monopty needle was advanced to prefire depth. Pre and post fire films were obtained. A single core was obtained. A ribbon clip was left in position. Pressure was held for hemostasis. Steri-Strip Telfa OpSite dressing applied. Specimens were immediately transferred individually to formalin in mechanical service representative containers. No apparent complication the patient tolerated it well. Hal Hu M.D., F.A.C.S. Alert Malathi Yes Biopsy Breast Biopsy: [id number] US Guidance (54685) Procedure Time Out Time Out Informed consent given: Yes Consent signed: Yes Time out checklist: patient, procedure, site marked/identified, positioning of patient, supplies available, allergies confirmed and team agrees on procedure Time out staff in room: Yes Time out verified: Yes Time out date: 10/18/20 Time out time: 15:55 Assessment and Plan Assessment and Plan (1) Abnormal mammogram of right breast: Status: Acute (2) Axillary adenopathy: Status: Acute Plan - Dr. Hal Hu MD: Abnormal right mammogram and right breast ultrasound 11 o'clock position +6 cm successfully undergoing ultrasound-guided needle core biopsy with coil clip placement. Abnormally enlarged right axillary lymph node successfully undergone ultrasound-guided core biopsy with ribbon clip placement The patient has had an opportunity ask no questions answered. She will be notified of pathology results as they become available. The patient has not been vaccinated for COVID-19. A brief discussion regarding benefit risk was offered. Recommendations for pursuing the vaccine were made in light of potential need for surgery. Copy: Dr. Suzi Hu M.D., F.A.C.S. ROS General General: No weight change, appetite, fatigue, colon cancer, breast cancer or weakness HEENT HEENT: No difficulty swallowing, eye injury, eye surgery, swollen glands or hoarseness Endo Endocrine: No thyroid disease, diabetes mellitus, thyroid cancer, Hair loss, heat intolerance or cold intolerance Skin Skin: No rash or changing moles Breast Breast: No left breast lump, right breast lump, nipple discharge, breast pain, abnormal mammogram, abnormal US or breast enlargement Musc Musculoskeletal: No back problems, arthritis, rheumatoid arthritis, gout or joint pain Cardio Cardiovascular: No murmur, pacemaker, heart disease, atrial fibrillation, high blood pressure, heart attack, heart stent, palpitations, shortness of breat with exertion or chest pain Psych Psychiatric: No depression, anxiety or hearing voices Resp Respiratory: No shortness of breath, No sleep apnea, No cough, No COPD, No asthma, No emphysema and No wheezing Gastro Gastrointestinal: No abdominal pain, No nausea or vomiting, No diarrhea, No constipation, No blood in stool, No acid reflux, No hemorrhoids, No ulcers, No gallbladder problem and No black,tarry stools Ward Hematologic: No blood thinners, No blood disorders, No bleeding, No anemia and No blood clots Neuro Neurologic: No system reviewed and no additional complaints, except as documented, No as per HPI, No abnormal gait, No abnormal hearing, No abnormal movements, No abnormal speech, No behavioral changes, No burning sensations, No confusion, No convulsions, No disequilibrium, No dizziness, No localized weakness, No frequent falls, No headache(s), No lack of coordination, No loss of vision, No memory loss, No numbness, No other visual disturbances, No radicular pain, No restless legs, No sensory deficit, No syncope, No tingling, No tremor(s), No weakness and No other Assessment and Plan Assessment and Plan (1) Breast cancer metastasized to axillary lymph node: Status: Acute Qualifiers: Laterality: right Qualified Code(s): C50.911 - Malignant neoplasm of unspecified site of right female breast; C77.3 - Secondary and unspecified malignant neoplasm of axilla and upper limb lymph nodes Orders: Orders: Breast Bilateral W/O and W Today C50.911, C77.3 Referrals: Oncology C50.911, C77.3 Plan Details Additional Comments: 75-year-old female with biopsy-proven upper outer quadrant right breast cancer with metastasis to the right axillary lymph node. This point I will recommend bilateral breast MRI and referral to hematology oncology. Both areas have been tissue marked. She is aware that I am anticipating definitive right breast surgery in the future. Could still pursue breast conservation technique as the original tumor was quite small. Would likely need to justus the enlarged lymph node preoperatively to assure removal. She is in concurrence with visiting our hematology oncology center here. I will await their recommendations as well as MRI. Copy: Dr. Suzi Hu M.D., F.A.C.S. Exam Chest Other: Right breast and right axilla well-healed ultrasound-guided core biopsy upper outer quadrant right breast and right axilla. Shotty right axillary adenopathy no definitive enlarged node nor matting. Resp Effort & Inspection: normal respiratory effort Auscultation: clear to auscultation bilaterally Cardio Rate: regular rate Rhythm: regular rhythm GI Palpation: soft and no hepatosplenomegaly Neuro Cognition: normal cognition Extrem General: no calf tenderness Psych Appearance: grossly normal COVID (Procedure Consent) Procedure Criteria Procedure Criteria: Yes Elective The surgeon/proceduralist and patient have discussed in detail the risk of exposure to and/or potential harm posed by the COVID-19 virus with having a surgery/procedure at this time versus the risk of delaying the surgery/procedure. It is not possible to know either the risk of delaying the surgery or procedure or chance of getting an infection with perfect accuracy, but a joint decision was made between the patient and the surgeon/proceduralist to proceed at this time with the scheduled surgery/procedure as indicated on the consent form. Assessment and Plan Assessment and Plan (1) Regional lymph node metastasis present: Status: Acute (2) Breast cancer of upper-outer quadrant of right female breast: Status: Acute Qualifiers: Estrogen receptor status: positive Qualified Code(s): C50.411 - Malignant neoplasm of upper-outer quadrant of right female breast; Z17.0 - Estrogen receptor positive status [ER+] Plan - Dr. Hal Hu MD: I proposed with the patient a stereotactic wire local apartment: Right breast and possibly right axillary procedure if the axilla cannot be stereotactic excised and ultrasound-guided wire localization in the operating room of the right axillary positive node. Then subsequently a wire localized right breast lumpectomy with right axillary lymph node dissection. The patient and son are aware of technique, benefit, risk, alternatives. The patient is aware that she will benefit from post intervention radiation treatment as well. She has had an opportunity to ask and have questions answered. The patient has not been vaccinated from COVID-19. I did have a discussion with her regarding that and recommended vaccination. The patient is aware of COVID-19 presents in the hospital. She is aware that anticipating that we will accomplish this as an outpatient. She is aware that she will be going home with a drain in place. I appreciate the ongoing opportunity of assisting with her surgical care Copy: Dr. Suzi Ledesma and Dr. Riley Hu M.D., F.A.C.S. Plan Details Other Medications: New: tamsulosin (Flomax) 0.4 mg PO QHS 30 caps 0RF I have re-examined the patient. There are no clinical changes since date of exam.
--- NOTE | 2020-11-30 10:46 | PCM.OPRPT ---
Problems Associated Problem List Diagnoses (1) Breast cancer metastasized to axillary lymph node: Report of Operation Date of Procedure: 11/30/20 Pre-Operative Diagnosis: Upper outer quadrant right breast cancer with lymph node metastasis Post-Operative Diagnosis: Same Surgery/Procedure Performed:: Stereotactic wire localization right breast cancer Wire localized right breast lumpectomy with right axillary lymph node dissection Description of Surgical Findings:: Timeout and informed consent was obtained. The patient was taken to the stereotactic unit and placed prone on the table. 2 images were required to get localization of the lesion in question. Stereotactic images were obtained. Digital information was obtained on a single target site. The breast was prepped with Betadine. 1% lidocaine was used as local anesthetic. 1 cc was used. A 20-gauge Kopan's needle was advanced a depth +15 mm. The wire was displaced. On fast view demonstrated excellent localization. Tape and then dressing was applied. Follow-up medial lateral view was obtained demonstrating adequate position. The patient was subsequently taken to the operating for definitive surgical treatment. The patient was taken to the operating room placed upon the table. Timeout informed consent again performed. She underwent general anesthesia. The right arm was placed at right angles to the table carefully wrapped with soft roll. The right breast and axilla were sterilely prepped and draped. Ultrasound was performed of the right axillary area. The enlarged lymph node was identified. A Kopan's needle was advanced to depth and a wire was displaced. Based upon the wire localization for the breast a curvilinear incision was made the upper quadrant the right breast sharp dissection carried down through the subtenons tissue circumferential dissection performed using sharp dissection electrocautery section around the wire localized lump. Complete removal was achieved. A long suture was placed laterally a short suture superiorly and the wire exited anteriorly. The closest margin was reported by pathology to be 5 mm. 4 small hemoclips were left at the periphery of the lumpectomy margin. Attention was drawn to the right axilla. An oblique incision was made in the right axilla sharp dissection carried down in the subtenons tissue and then a level 1 to axillary lymph node dissection was performed. Using the axillary vein and the subscapularis and serratus anterior and latissimus dorsi as margins. The lymph node packet bordered by these areas was carefully dissected free starting medially and superiorly. Course of the long thoracic nerve of Tello and thoracodorsal nerves were identified and protected. Axillary vein protected. The enlarged lymph node identified along the wire localization was included in the packet and during the dissection the wire was intentionally removed. Careful dissection was made to preserve the intercostal brachial cutaneous nerve to the upper arm. There were some palpable nodes within the specimen that was excised. The dissection was performed with blunt dissection sharp dissection and harmonic scalpel dissection. There was very minimal blood loss. Hemostasis was intact. The wound was irrigated with saline. Then a stab incision was made inferior and lateral to the wound and a 15 round ERIK drain was exited. The drain was secured to skin with 3-0 nylon. It was shortened in length. The wounds were then closed with deep sutures of interrupted 3-0 Vicryl. Skin edges approximated running septic or 4 Monocryl. 0.5% Marcaine was used as a local anesthetic and throughout the procedure total 30 cc was used at both sites total. Steri-Strips Telfa 4 x 4's ABD dressings and a bulky type dressing was applied. Sponge and instrument and needle counts were reported to certainly be correct Specimen right breast upper outer quadrant lumpectomy and right axillary level 2 1 and 2 lymph nodes. Drains a single 15 round ERIK Blood loss minimal The patient was taken to the recovery area in satisfactory addition without apparent complication Hal Hu M.D., F.A.C.S. Surgeon: Hal Hu Type of Anesthesia: General and Local Anesthesiologist: aFdia Avila
--- NOTE | 2020-11-30 10:48 | EX.PCM.DISCH ---
Discharge Instructions Procedure Breast Surgery Diet Discharge Diet: No restrictions Activity Discharge Activity: May Not Drive (for 2-3 days or while taking narcotic pain meds.) May shower in (days): 1 Lifting Restrictions: 10 pounds for 1 week. Dressing / Incision Call your doctor if your incision/area has: Continuous Slow Oozing and Sudden Increased Bleeding Call your doctor if you observe: Fever of 101 or Higher Suture Line Care: Avoid Pulling/Pushing and Avoid Pinching/Bending Remove Dressing in: 1 day Follow Up Care Test Results: The drain dressings should be changed daily. Cleanse the drain site with a Q-tip and peroxide. Apply dry gauze and paper tape. As per nursing instructions empty measure and record the drain output. Please contact the office for office appointment on Friday, December 04, 2020 Discharge Plan Admission Attending Provider: Hal Hu Primary Care Provider: Suzi Ledesma Discharge Orders/Prescriptions Prescriptions: No Action metronidazole [MetroCream] 0.75 % cream 1 applic topical BID RF: 0 [place] Oil-1000 1,000-200 mg capsule 1 cap PO DAILY RF: 0 multivitamin Tablet 1 tab PO DAILY RF: 0 ascorbic acid (vitamin C) 1,000 mg tablet 1 g PO DAILY RF: 0 cholecalciferol (vitamin D3) [Vitamin D3] 50 mcg (2,000 unit) tablet 50 mcg PO BID RF: 0 tamsulosin [Flomax] 0.4 mg capsule 0.4 mg PO QHS Qty: 30 RF: 0 fluticasone propionate [Flonase] 50 mcg/actuation [place],Suspension 1 spray INTRANASAL DAILY RF: 0
[2020-11-30] MEDS: Cefazolin 2 GM in 0.9% Normal Saline 100 ML IV (11:01)
[2020-11-30] MEDS: Bupivacaine Mpf 0.5% 30 ML VIAL (12:52)
[2020-11-30 13:13] VITALS: BP 143/87; BP 148/90; PULSE 82; RESP 16; TEMP 36.4; O2SAT 96
[2020-11-30 13:15] VITALS: BP 133/81; BP 148/90; PULSE 84; RESP 16; O2SAT 95
[2020-11-30 13:30] VITALS: BP 126/78; BP 148/90; PULSE 76; RESP 16; O2SAT 95
[2020-11-30 13:45] VITALS: BP 134/79; BP 148/90; PULSE 86; RESP 16; TEMP 35.9; O2SAT 97
[2020-11-30 14:50] VITALS: BP 137/76; BP 148/90; PULSE 82; RESP 16; TEMP 36.6; O2SAT 96
== END 2020-11-30 15:17 | disposition home or self-care (01) ==
LOC: SDC 09:25 → AC 09:25
PROVIDERS: PCP Internal Medicine; Referring Provider Surgery; Visit Provider Surgery
PROC: 0HBV0ZZ Excision of Bilateral Breast, Open Approach (ICD-10-PCS; CPT 19302; principal; 2020-11-30 11:30)
DX: C50.411 Malignant neoplasm of upper-outer quadrant of right female breast (principal); C77.3 Secondary and unspecified malignant neoplasm of axilla and upper limb lymph nodes; B35.6 Tinea cruris; Z17.0 Estrogen receptor positive status [ER+]
CPT/HCPCS: 19302; 19281; 36415; 71046; 76098; 80053; 85027; 87426; 88305; 88307; 88341; 88342; 93005; C9803; J7120; J2405

== ENCOUNTER → 2021-01-19 10:32 | Outpatient (CLI) | payer MEDICARE, SELFPAY ==
[2021-01-19 15:50] LABS: M R Staph aureus DNA By PCR Negative (Negative); Probe Check PASS; Specimen Processing Control PASS
== END ==
PROVIDERS: PCP Internal Medicine; Referring Provider Nurse Practitioner; Visit Provider Nurse Practitioner
DX: J34.89 Other specified disorders of nose and nasal sinuses (principal)
CPT/HCPCS: 87641

== ENCOUNTER → 2021-10-30 | Outpatient (CLI) | payer MEDICARE, SELFPAY ==
--- NOTE | 2021-10-30 10:00 | BI_ITS ---
MAMMOGRAPHY - BILATERAL SCREENING REASON FOR EXAM: Female, 76 years old. Routine annual screening examination. PERTINENT HISTORY: Personal history of breast cancer. Patient is status post right lumpectomy and radiation treatment. TECHNIQUE: Digital bilateral breast aristeo (3D mammographic acquisition) in the CC and MLO projections. 2-D mediolateral oblique (MLO) and craniocaudad (CC) views of both breasts were obtained. CAD: Full Field Digital Mammography with Computer Added Detection was performed. COMPARISON: Comparison is made with prior study dated 09/26/2020. FINDINGS: Breast Composition: The breasts are heterogeneously dense, which may obscure small masses. The patient is status post lumpectomy in the upper deep lateral aspect of the right breast with resultant postoperative architectural distortion and overlying skin thickening. The previously seen right axillary lymph node has been resected. No other significant abnormalities are identified. BI/SCRN MAMM (CAD)W/ARISTEO BILAT IMPRESSION: Status post lumpectomy in the upper lateral aspect of the right breast with resultant postoperative architectural distortion and prior resection of the right axilla. Yearly follow-up mammogram recommended. (A) ASSESSMENT CATEGORY: BIRADS Category 2: Benign. A letter regarding these results will be sent to the patient by the facility within 30 days. Approximately 10% of breast cancers are not detected by mammography. A normal mammogram should not delay biopsy of a clinically suspicious abnormality. [id number] Electronically Signed: Medhat Casanova MD at 10:53 EDT ,
== END | disposition home or self-care (01) ==
PROVIDERS: PCP Internal Medicine; Visit Provider Surgery
DX: Z12.31 Encounter for screening mammogram for malignant neoplasm of breast (principal)
CPT/HCPCS: 77063; 77067

== ENCOUNTER → 2022-10-31 | Outpatient (CLI) | payer MEDICARE, SELFPAY ==
--- NOTE | 2022-10-31 10:20 | BI_ITS ---
MAMMOGRAPHY - BILATERAL SCREENING REASON FOR EXAM: Female, 77 years old. Routine annual screening examination. PERTINENT HISTORY: Personal history of breast cancer. Prior right lumpectomy and radiation. TECHNIQUE: Digital bilateral breast aristeo (3D mammographic acquisition) in the CC and MLO projections. 2-D mediolateral oblique (MLO) and craniocaudad (CC) views of both breasts were obtained. CAD: Full Field Digital Mammography with Computer Added Detection was performed. COMPARISON: Comparison is made with prior study dated October 30, 2021 and November 30, 2020. FINDINGS: Breast Composition: The breasts are heterogeneously dense, which may obscure small masses. There are no dominant masses or suspicious calcifications. The patient is status post lumpectomy in the upper deep lateral aspect of the right breast with development postoperative scarring. No other significant abnormalities are identified. There has been no significant change since the prior study. BI/SCRN MAMM (CAD)W/ARISTEO BILAT IMPRESSION: Stable bilateral screening mammogram. Yearly follow-up mammogram recommended. (A) ASSESSMENT CATEGORY: BIRADS Category 2: Benign. A letter regarding these results will be sent to the patient by the facility within 30 days. Approximately 10% of breast cancers are not detected by mammography. A normal mammogram should not delay biopsy of a clinically suspicious abnormality. [id number] Electronically Signed: Medhat Casanova MD at 12:04 EDT ,
--- NOTE | 2022-10-31 10:20 | BD_ITS ---
STUDY: DUAL ENERGY X-RAY ABSORPTIOMETRY / DXA REASON FOR EXAM: Female, 77 years old. V76.12ScreeningBONE DENSITY REASON FOR EXAM TECHNIQUE: Bone Mineral Density (BMD) measurements of lumbar spine and bilateral hips were obtained. COMPARISON: Comparison is made with prior study dated September 26, 2020. FINDINGS: Lumbar Spine (L1-L4): g/cm2 (0.762) / T-score (-3.1) / Z-score (-0.4) Findings are suggestive of osteoporosis with a high fracture risk. Left Femur Total: g/cm2 (0.738) / T-score (-1.7) / Z-score (0.2) Left Femoral Neck: g/cm2 (0.576) / T-score (-2.5) / Z-score (-0.3) Right Femur Total: g/cm2 (0.747) / T-score (-1.6) / Z-score (0.3) Right Femoral Neck: g/cm2 (0.603) / T-score (-2.2) / Z-score (0.0) The T-Scores on the most recent prior examination were: Lumbar Spine (L1-L4): There has been worsening of bone density since the previous examination. Left Femur Total: which represents a worsening of 1.5%. Right Femur Total: which represents a worsening of 3.1%. BD/Dexa Bone Density Study IMPRESSION: The patient is considered osteoporotic as outlined below according to World Jose Organization (WHO) criteria with a high fracture risk. There has been worsening of bone density since the previous examination. Reference Information: The T-score is the number of standard deviations above or below the standard which is normal for young adults at their peak bone mineral density. The World Health Organization (WHO) interprets the T-scores as follows: Above -1 Normal bone density Between -1 and -2.5 Osteopenia Equal to / or below -2.5 Osteoporosis As a practical clinical guideline, osteopenia may be graded as follows: Mild -1 through -1.5 Moderate -1.6 through -2.0 Severe -2.1 through -2.4 The Z-score is the number of standard deviations above or below age-matched controls. A Z-score of less than -1.5 would be considered abnormal. References: 1. NIH Osteoporosis and Related Bone Diseases www osteo.org 2. International Society for Clinical Densitometry www iscd.org 3. National Osteoporosis Foundation www nof.org Electronically Signed: Medhat Casanova MD at 11:01 EDT ,
== END | disposition home or self-care (01) ==
PROVIDERS: PCP Internal Medicine; Referring Provider Internal Medicine; Visit Provider Internal Medicine
DX: Z78.0 Asymptomatic menopausal state (principal); Z12.31 Encounter for screening mammogram for malignant neoplasm of breast
CPT/HCPCS: 77063; 77067; 77080

== ENCOUNTER → 2023-11-04 | Outpatient (CLI) | payer MEDICARE, SELFPAY ==
--- NOTE | 2023-11-04 10:10 | BI_ITS ---
MAMMOGRAPHY - BILATERAL SCREENING REASON FOR EXAM: Female, 78 years old. Routine annual screening examination. PERTINENT HISTORY: Personal history of breast cancer. Prior right lumpectomy with radiation treatment. TECHNIQUE: Digital bilateral breast aristeo (3D mammographic acquisition) in the CC and MLO projections. 2-D mediolateral oblique (MLO) and craniocaudad (CC) views of both breasts were obtained. CAD: Full Field Digital Mammography with Computer Added Detection was performed. COMPARISON: Comparison is made with prior study October 31, 2022 and October 30, 2021. FINDINGS: Breast Composition: The breasts are heterogeneously dense, which may obscure small masses. There are no dominant masses or suspicious calcifications. The patient is status post lumpectomy in the deep upper lateral aspect of the right breast. Resultant postoperative scarring and deformity is present. No other significant abnormalities are identified. There has been no significant change since the prior study. BI/SCRN MAMM (CAD)W/ARISTEO BILAT IMPRESSION: Stable bilateral screening mammogram. Yearly follow-up mammogram recommended. (A) ASSESSMENT CATEGORY: BIRADS Category 2: Benign. A letter regarding these results will be sent to the patient by the facility within 30 days. Approximately 10% of breast cancers are not detected by mammography. A normal mammogram should not delay biopsy of a clinically suspicious abnormality. [id number] Electronically Signed: Medhat Casanova MD at 13:50 EDT ,
== END | disposition home or self-care (01) ==
LOC: OPBI 10:10
PROVIDERS: PCP Internal Medicine; Referring Provider Internal Medicine; Visit Provider Internal Medicine
DX: Z12.31 Encounter for screening mammogram for malignant neoplasm of breast (principal)
CPT/HCPCS: 77063; 77067

== ENCOUNTER 2024-02-18 09:40 | Outpatient (RCR) | payer MEDICARE, SELFPAY ==
--- NOTE | 2024-02-18 10:45 | HP.OTEVAL_ITS ---
Patient's Visit Information Visit Information Visit Information: SHARIFA DALEY is a 78 year old F, referred to Occupational Therapy by Dr. Suzi Ledesma DO, with a diagnosis of Lymphedema RUE. Date of Evaluation: 02/18/24 Occupational Therapist: Maliha Guy Subjective Subjective: This 78 year old female presents for OT eval with dx of Lymphedema. Pt with dx of R breast lumpectomy and R axillary lymph node dissection about 10- 12 due to invasive ductal carcinoma 2/10 positive. pt followed up surgery with radiation from 01/31/22-02/21/22 17 treatments total. Pt presents this date with gradual swelling of RUE per pt over the past year. pt has not yet tried anything for the swelling. pt is very active states she works out at home. pt says swelling stays consistent throughout the day. Pt sleeps in a bed at home. Pt is R hand dominant. ROM Shoulder: wfl Elbow: wfl Forearm: wfl Wrist: wfl ROM Comments: all wfl no pulling on right side Lymphedema (Circumferential Measure) MCP: R 18.5 cm L 18.5 cm Wrist: R 15 cm L 15 cm Lower forearm: R 17 cm L 15 cm Largest forearm: R 22cm L 20.5 cm Elbow: R 24 cm L 21.5 cm Largest humerus: R 29 cm L 26 cm Axcillary: R 37 cm L 36 cm Upper Exremity Comments: R length of arm from wrist 50 cm Sensation Sensation Comments: once in awhile slight numbness in dorsal aspect of hand Goals Goal: Patient will demonstrate a 20% reduction in edema by discharge: Yes Goal: Patient will demonstrate adequate knowledge of self-massage by the end of the second week.: Yes Goal: Patient will demonstrate adequate knowledge of skin care and precautions by the end of the first week.: Yes Goal: Patient will demonstrate adequate knowledge of therapeutic exercises by discharge.: Yes Goal: Patient will select an appropriate compression garment and demonstrate adequate knowledge of correct donning technique, care and wearing schedule by discharge.: Yes Goal: Patient will voice understanding of need to replace compression garment every four to six months by discharge.: Yes Rehabilitation General Assessment: This 78 year old female arrives with dx of RUE lymphedema s/p lumpectomy and removal of 10-12 lymph nodes axillary region in 2020. RUE gradual swelling for past year in which pt states stays consistent throughout the day. OT services indicated 3 sessions within 3 month span in order to provide training in lymph massage, UE exercise, skin care, and compression garments. Rehabilitation Potential: Good Anticipated Interventions Anticipated Interventions: A/AAROM/PROM, Edema Control, Education re Diagnosis, Manual Lymph Drainage, Education re Life-long lymphedema Management, Education re Skin Care and Precautions, Education re Self Massage Techniques, Education re Correct Donning Tech,Care&Wearing Sched Comp Garments and Home Program Visit Plan Frequency: 3 sessions Duration: 3 Months General Plan: lymph massage UE exercise compression garments skin care TEXT: Thank you for the opportunity to evaluate your patient. For Medicare and Medicare HMO plans, please review the plan of care and approve it. It will need to be FAXED BACK to us at [phone] for Medicare purposes. Please let me know if there are questions or concerns regarding this plan of care. Physician Signature: Date:
--- NOTE | 2024-05-27 11:43 | HP.OT.NRP ---
Patient Information Patient Information: SHARIFA DALEY was seen in my office for initial evaluation on 02/18/24. The following Plan of Care was established for this patient: POC Established Initial Frequency: 3 sessions Initial Duration: 3 Months Anticipated Interventions Anticipated Interventions: A/AAROM/PROM, Edema Control, Education re Diagnosis, Manual Lymph Drainage, Education re Life-long lymphedema Management, Education re Skin Care and Precautions, Education re Self Massage Techniques, Education re Correct Donning Tech,Care&Wearing Sched Comp Garments and Home Program Last Seen Last Seen: This patient was last seen in our office 02/17/25. Pertinent comments regarding their Occupational therapy will appear below: This 78 year old female seen by OT for dx of RUE lymphedema. pt seen for initial eval with information provided as well as script created for compression garment. OT spoke with pt on phone 03/09/24 to notify that script was signed by physician and [facility]. pt has not scheduled any additional visits with OT at this time. discharge from OT POC due to time lapse in services. At this point I will be discontinuing this patient from occupational therapy. I would be happy to see this patient again in the future if found appropriate by the physician. Thank you! Maliha Guy
== END 2024-02-18 19:00 | disposition home or self-care (01) ==
LOC: OT 09:40
PROVIDERS: PCP Internal Medicine; Referring Provider Internal Medicine; Visit Provider Internal Medicine
DX: I89.0 Lymphedema, not elsewhere classified (principal)
CPT/HCPCS: 97165; 97530

== ENCOUNTER → 2024-08-20 | Outpatient (CLI) | payer MEDICARE, SELFPAY ==
[2024-08-20 15:09] LABS: Free T3 3.6 pg/mL (2.18-3.98); Thyroid Stim Hormone (TSH) 0.007 uIU/mL (0.300-4.200)
[2024-08-21 04:07] LABS: Thyroid Peroxidase AB 383 IU/mL (0-34)
== END | disposition home or self-care (01) ==
LOC: LAB 11:50
PROVIDERS: PCP Internal Medicine; Referring Provider Internal Medicine Endocrinology, Diabetes & Metabolism; Visit Provider Internal Medicine Endocrinology, Diabetes & Metabolism
DX: E05.00 Thyrotoxicosis with diffuse goiter without thyrotoxic crisis or storm (principal)
CPT/HCPCS: 36415; 84439; 84443; 84481; 86376

== ENCOUNTER → 2024-09-21 | Outpatient (CLI) | payer MEDICARE, SELFPAY ==
[2024-09-21 12:27] LABS: Free T3 2.9 pg/mL (2.18-3.98)
== END | disposition home or self-care (01) ==
PROVIDERS: PCP Internal Medicine; Referring Provider Internal Medicine Endocrinology, Diabetes & Metabolism; Visit Provider Internal Medicine Endocrinology, Diabetes & Metabolism
DX: E05.00 Thyrotoxicosis with diffuse goiter without thyrotoxic crisis or storm (principal)
CPT/HCPCS: 36415; 84439; 84443; 84481

== ENCOUNTER → 2024-10-21 | Outpatient (CLI) | payer MEDICARE, SELFPAY ==
[2024-10-21 15:35] LABS: Free T3 2.6 pg/mL (2.18-3.98)
== END | disposition home or self-care (01) ==
LOC: LAB 14:27
PROVIDERS: PCP Internal Medicine; Referring Provider Internal Medicine Endocrinology, Diabetes & Metabolism; Visit Provider Internal Medicine Endocrinology, Diabetes & Metabolism
DX: E05.00 Thyrotoxicosis with diffuse goiter without thyrotoxic crisis or storm (principal)
CPT/HCPCS: 36415; 84439; 84443; 84481

== ENCOUNTER → 2024-11-04 | Outpatient (CLI) | payer MEDICARE, SELFPAY ==
--- NOTE | 2024-11-04 10:00 | BD_ITS ---
PROCEDURE: DEXA BONE DENSITY STUDY 11/04/2024 REASON FOR EXAM: F, age 79 y/o . Postmenopausal. TECHNIQUE: Procedure Code: BDDBD Modality: DX Procedure: DEXA BONE DENSITY STUDY COMPARISON: Prior study dated September 26, 2020. FINDINGS: BMD and T-SCORES Lumbar spine: 0.794 g/cm2, T-score -2.6 Levels: L1 through L4 Change from prior: Improvement of 2%. Left femoral neck: 0.581 g/cm2, T-score -2.4 Femoral neck comparison data not recommended for monitoring change. Left total hip: 0.741 g/cm2, T-score -1.6 Change from prior: Improvement of 0.4%. Right femoral neck: 0.559 g/cm2, T-score -2.6 Femoral neck comparison data not recommended for monitoring change. Right total hip: 0.729 g/cm2, T-score -1.7 Change from prior: Loss of 2.5%. The World Health Organization has defined the following categories based on bone density: Normal bone density: T-score equal to or greater than -1.0 Osteopenia: T-score between -1.0 and -2.5 Osteoporosis: T-score equal to or less than -2.5 FRAX (or Comparable) Fracture Risk Assessment: 10 Year Probability of Fracture: Major Osteoporotic Fracture: 38% Hip Fracture: 15% (Note: FRAX is not to be reported in setting of normal range bone density, osteoporosis on DEXA, known history of osteoporosis, prior osteoporotic hip or vertebral fracture, or for any patient undergoing pharmacological treatment for bone loss.) The National Osteoporosis Foundation (NOF) recommends pharmacological treatment for patients with a FRAX 10-year risk of 3% or higher for a hip fracture, or 20% or higher for a major osteoporotic fracture, to prevent osteoporosis and reduce fracture risk. The patient does meet the pharmacological treatment recommendations for prevention of osteoporosis. BD/Dexa Bone Density Study IMPRESSION: OSTEOPOROSIS. Recommend follow-up as clinically warranted. Reading [id number]
--- NOTE | 2024-11-04 10:30 | BI_ITS ---
EXAM: SCRN MAMM (CAD)W/ARISTEO BILAT DATE: 11/04/2024 CLINICAL HISTORY: F, Age 79 y/o , SCRN MAMM (CAD)W/ARISTEO BILAT DUE AFTER 11/03/2024 Personal history of breast cancer. Prior right lumpectomy and radiation. TECHNIQUE: Procedure Code: [id number] Modality: MG Procedure: SCRN MAMM (CAD)W/ARISTEO BILAT COMPARISON: Prior exam(s) dated November 04, 2023.. FINDINGS: TISSUE DENSITY: The breasts are heterogeneously dense, which may obscure small masses. Bilateral Breast Mammographic Findings: No significant masses, calcifications or other abnormalities are identified. Once again, the patient is status post lumpectomy in the deep upper lateral aspect of the left breast with postoperative scarring. No suspicious masses, areas of developing architectural distortion, or suspicious calcifications. There has been no significant interval change. BI/SCRN MAMM (CAD)W/ARISTEO BILAT IMPRESSION: Stable bilateral screening mammogram. OVERALL FINAL ASSESSMENT BI-RADS 2: BENIGN RECOMMENDATION: Routine annual follow-up in 1 Year A letter with findings and recommendations will be mailed to the patient. Reading Location: [id number]
== END | disposition home or self-care (01) ==
LOC: OPBD 09:59
PROVIDERS: PCP Internal Medicine; Referring Provider Internal Medicine; Visit Provider Internal Medicine
DX: Z12.31 Encounter for screening mammogram for malignant neoplasm of breast (principal); M81.0 Age-related osteoporosis without current pathological fracture
CPT/HCPCS: 77063; 77067; 77080

== ENCOUNTER 2024-11-26 11:03 | Outpatient (RCR) | payer MEDICARE, SELFPAY | END 2024-11-30 18:00 | disposition home or self-care (01) | LOC: LAB 11:03 | PROVIDERS: PCP Internal Medicine; Referring Provider Internal Medicine Endocrinology, Diabetes & Metabolism; Visit Provider Internal Medicine Endocrinology, Diabetes & Metabolism | DX: Z00.00 Encounter for general adult medical examination without abnormal findings (principal) ==

== ENCOUNTER 2025-02-10 12:08 | Outpatient (RCR) | payer MEDICARE, SELFPAY ==
[2025-02-10 14:19] LABS: Free T3 2.5 pg/mL (2.18-3.98)
== END 2025-02-10 18:00 | disposition home or self-care (01) ==
LOC: LAB 12:08
PROVIDERS: PCP Internal Medicine; Referring Provider Internal Medicine Endocrinology, Diabetes & Metabolism; Visit Provider Internal Medicine Endocrinology, Diabetes & Metabolism
DX: E05.00 Thyrotoxicosis with diffuse goiter without thyrotoxic crisis or storm (principal)
CPT/HCPCS: 36415; 84439; 84443; 84481